=== PATIENT | female | born 1955 | race Caucasian/White ===

== ENCOUNTER 2016-12-17 12:14 | Emergency (ER) | payer OTHER ==
[~2016-12-17 12:14] MED LIST: FOLIC ACID 1 MG1 MG PO; NEURONTIN600 MG PO; NORCO 10-325 T1 EACH PO; TOPROL XL50 MG PO; VALIUM 5 MG TAB5 MG PO; VASOTEC10 MG PO; VITAMIN B-121000 MC3 PO; VITAMIN B-650 MG PO; XARELTO20 MG PO; ZANTAC300 MG PO; [UNRECOGNIZED DRUG - OTHER]
[2017-05-24] MEDS ORDERED: VITAMIN D250000 UNIT PO (00:36)
[2017-05-25] MEDS ORDERED: CRESTOR40 MG PO (13:18)
[2017-05-25] MEDS ORDERED: HYDROCHLOROTHIA25 MG PO (13:18)
== END 2016-12-17 14:00 | disposition home or self-care (01) ==
LOC: ER1 12:14
DX: S76.211A Strain of adductor muscle, fascia and tendon of right thigh, initial encounter (principal); R59.0 Localized enlarged lymph nodes; I51.9 Heart disease, unspecified; Z85.3 Personal history of malignant neoplasm of breast; Z91.041 Radiographic dye allergy status; X58.XXXA Exposure to other specified factors, initial encounter; Z79.899 Other long term (current) drug therapy; Z79.01 Long term (current) use of anticoagulants
CPT/HCPCS: 93971; 99283

== ENCOUNTER → 2016-12-21 | Outpatient (CLI) | payer OTHER ==
[~2016-12-21] MED LIST changes: +CRESTOR40 MG PO; +HYDROCHLOROTHIA25 MG PO; +VITAMIN D250000 UNIT PO
== END ==
LOC: KOH-I 11:02
DX: M25.551 Pain in right hip (principal)
CPT/HCPCS: 73502

== ENCOUNTER → 2017-03-28 | Outpatient (CLI) | payer OTHER | LOC: MAMO 02-04 14:00 | DX: Z12.31 Encounter for screening mammogram for malignant neoplasm of breast (principal); C77.3 Secondary and unspecified malignant neoplasm of axilla and upper limb lymph nodes; D50.9 Iron deficiency anemia, unspecified; D05.12 Intraductal carcinoma in situ of left breast; Z86.718 Personal history of other venous thrombosis and embolism; Z80.3 Family history of malignant neoplasm of breast | CPT/HCPCS: G0202 ==

== ENCOUNTER 2020-12-24 17:00 | Emergency (ER) | payer MEDICARE, OTHER ==
[~2020-12-24 17:00] MED LIST changes: +BACTROBAN OINT22 GM EXT; +FAMOTIDINE40 MG PO; +NORVASC10 MG PO; +VITAMIN D-32000 UNI1 PO
[2020-12-24] MEDS ORDERED: IBU600 MG PO (20:35)
== END 2020-12-24 20:58 | disposition home or self-care (01) ==
LOC: ER1 17:00
DX: M25.561 Pain in right knee (principal); M25.562 Pain in left knee; M25.532 Pain in left wrist; I10 Essential (primary) hypertension; Z95.1 Presence of aortocoronary bypass graft; Z90.710 Acquired absence of both cervix and uterus; Z91.041 Radiographic dye allergy status; W19.XXXA Unspecified fall, initial encounter
CPT/HCPCS: 73110; 73562; 99283

== ENCOUNTER → 2020-12-31 | Outpatient (CLI) | payer MEDICARE, OTHER ==
[~2020-12-31] MED LIST changes: +IBU600 MG PO
== END ==
LOC: KOH-I 13:59
DX: M25.561 Pain in right knee (principal); R22.41 Localized swelling, mass and lump, right lower limb; R53.81 Other malaise; R53.83 Other fatigue
CPT/HCPCS: 93971; G0463

== ENCOUNTER → 2021-01-08 | Outpatient (CLI) | payer MEDICARE, OTHER | LOC: KOH-I 10:21 | DX: C77.3 Secondary and unspecified malignant neoplasm of axilla and upper limb lymph nodes (principal); R59.0 Localized enlarged lymph nodes | CPT/HCPCS: 76881 ==

== ENCOUNTER 2021-01-09 16:24 | Emergency (ER) | payer MEDICARE, OTHER | END 2021-01-09 19:15 | disposition home or self-care (01) | LOC: ER1 16:24 | DX: M79.89 Other specified soft tissue disorders (principal); I10 Essential (primary) hypertension | CPT/HCPCS: 93971; 99283 ==

== ENCOUNTER → 2021-01-20 | Outpatient (CLI) | payer MEDICARE, OTHER | LOC: KOH-I 13:18 | DX: M79.671 Pain in right foot (principal); M19.071 Primary osteoarthritis, right ankle and foot | CPT/HCPCS: 73630 ==

== ENCOUNTER → 2021-03-09 | Outpatient (CLI) | payer MEDICARE, OTHER | LOC: KOH-I 14:50 | DX: M79.671 Pain in right foot (principal) | CPT/HCPCS: 73630 ==

== ENCOUNTER → 2021-03-10 | Outpatient (CLI) | payer MEDICARE, OTHER | LOC: MAMO 13:02 | DX: Z12.31 Encounter for screening mammogram for malignant neoplasm of breast (principal); R59.9 Enlarged lymph nodes, unspecified | CPT/HCPCS: 77063; 77067 ==

== ENCOUNTER → 2021-11-23 | Outpatient (CLI) | payer MEDICARE, OTHER | LOC: US 10:37 | DX: R22.43 Localized swelling, mass and lump, lower limb, bilateral (principal); M79.89 Other specified soft tissue disorders | CPT/HCPCS: 73630; 93971 ==

== ENCOUNTER → 2022-04-13 | Outpatient (CLI) | payer OTHER, MEDICARE ==
[2022-04-13 17:11] LABS: HEMOGLOBIN 12.9 gm/dl (12.3-15.3); RED BLOOD COUNT 4.05 M/UL (4.00-5.10)
[2022-04-13 17:36] LABS: BUN/CREATININE RATIO 15 (0-10)
== END ==
LOC: RAD 15:41
PROVIDERS: Physician Assistant
DX: R10.9 Unspecified abdominal pain (principal); M79.631 Pain in right forearm; M54.50 Low back pain, unspecified; M25.552 Pain in left hip; M47.816 Spondylosis without myelopathy or radiculopathy, lumbar region
CPT/HCPCS: 36415; 72100; 73090; 73502; 80053; 81001; 85025

== ENCOUNTER → 2022-05-06 | Outpatient (CLI) | payer OTHER, MEDICARE | LOC: CT 08:00 | DX: R10.30 Lower abdominal pain, unspecified (principal); R16.1 Splenomegaly, not elsewhere classified; I86.8 Varicose veins of other specified sites ==

== ENCOUNTER → 2022-05-26 | Outpatient (CLI) | payer OTHER, MEDICARE | LOC: US 07:59 | DX: K76.9 Liver disease, unspecified (principal) | CPT/HCPCS: 76700 ==

== ENCOUNTER → 2022-05-29 | Outpatient (CLI) | payer MEDICARE, OTHER | LOC: MRI 10:02 | DX: R93.5 Abnormal findings on diagnostic imaging of other abdominal regions, including retroperitoneum (principal) | CPT/HCPCS: 74181 ==